=== PATIENT | male | born 1965 | race Two or more races ===

== ENCOUNTER 2019-07-08 18:29 | Emergency (ER) | payer SELFPAY ==
[~2019-07-08] VITALS: Ht 162.6 cm; Wt 127.3 kg
[2019-07-08 18:53] VITALS: Ht 162.6 cm; Wt 127.3 kg
[2019-07-08] MEDS ORDERED: ZYLOPRIM100 MG PO (18:55)
[2019-07-08 19:28] LABS: BASOPHILS 0.2 % (0-2); EOSINOPHILS 2.4 % (0-7); HEMATOCRIT 45.1 % (42.0-54.0); HEMOGLOBIN 14.7 g/dL (13.5-17.5); IMMATURE GRANULOCYTES 0.1 % (0-5); LYMPHOCYTES 29.9 % (15-50); MCH 28.4 pg (26.0-34.0); MCHC 32.6 g/dL (31.0-37.0); MCV 87.1 fL (80.0-100.0); MEAN PLATELET VOLUME 10.8 fL (7.4-10.4); MONOCYTES 9.8 % (2-11); NEUTROPHILS 57.6 % (40-80); PLATELET COUNT 312 10x3/uL (130-400); RBC 5.18 10x6/uL (4.20-6.10); RDW 13.7 % (11.5-14.5); WBC 8.4 10x3/uL (4.8-10.8)
[2019-07-08 19:36] LABS: APPEARANCE CLEAR (CLEAR); COLOR YELLOW (YELLOW); NITRITE NEGATIVE (NEGATIVE); SPECIFIC GRAVITY 1.015 (1.005-1.020)
[2019-07-08 19:37] LABS: BILIRUBIN NEGATIVE (NEGATIVE); GLUCOSE NEGATIVE (NEGATIVE); KETONE NEGATIVE (NEGATIVE); PROTEIN NEGATIVE (NEGATIVE); UROBILINOGEN NORMAL (NORMAL)
[2019-07-08 19:44] LABS: CALC OSMOLALITY 273 mosm/kg (275-300); CALCIUM 9.5 mg/dL (8.5-10.1); CARBON DIOXIDE 27.3 mmol/L (21.0-32.0); CHLORIDE - SERUM 103 mmol/L (98-107); CREATININE - SERUM 1.1 mg/dL (0.6-1.3); GLUCOSE 79 mg/dL (74-106); POTASSIUM - SERUM 3.7 mmol/L (3.5-5.1); SODIUM 137 mmol/L (136-145); UREA NITROGEN 15 mg/dL (7-18); eGFR NON AFRICAN AMERICAN 74 mL/min (90-120)
[2019-07-08 20:00] LABS: ALBUMIN 3.2 g/dL (3.4-5.0); ALKALINE PHOSPHATASE 111 U/L (46-116); ALT (SGPT) 32 U/L (10-68); BILIRUBIN - TOTAL 0.45 mg/dL (0.2-1.3); C-REACTIVE PROTEIN 5.3 mg/dL (0.0-0.9); CKMB 0.5 U/L (0.0-3.6); CREATINE KINASE 95 UL (21-232); PRO BNP 27 pg/mL (0-125); PROTEIN - SERUM 9.2 g/dL (6.4-8.2); URIC ACID 7.4 mg/dL (2.6-7.2)
[2019-07-08 20:02] LABS: TROPONIN-I < 0.017 ng/mL (0.000-0.060)
[2019-07-08 20:49] LABS: ERYTHROCYTE SEDIMENTATION RATE 52 mm/hr (0-20)
[2019-07-08] MEDS ORDERED: STERAPRED DS 1210 MG PO (21:02)
[2019-07-08 21:39] VITALS: BP 137/78
== END 2019-07-08 21:39 | disposition home or self-care (01) ==
LOC: D.ER 18:29
PROVIDERS: Family Medicine
DX: M25.50 Pain in unspecified joint (principal); M10.9 Gout, unspecified